=== PATIENT | female | born 1995 | race Caucasian/White ===

== ENCOUNTER 2018-01-27 05:50 | Emergency (ER) | payer OTHER ==
[~2018-01-27] VITALS: Ht 160 cm; Wt 61.2 kg
[2018-01-27 06:01] VITALS: Ht 160 cm; Wt 61.2 kg
[2018-01-27 06:46] LABS: BASOPHIL % 0.2 % (0-2); PLATELET COUNT 238 x10^3mcL (130-400); RED CELL DISTRIBUTION WIDTH 13.9 % (11.5-14.5)
[2018-01-27 06:48] LABS: CALCIUM 8.8 mg/dL (8.5-10.1); CHLORIDE SERUM 103 mmol/L (98-107); CREATININE SERUM 0.5 mg/dL (0.6-1.0); GFR1 > 60 mL/min; GLUCOSE SERUM 90 mg/dL (74-106); POTASSIUM SERUM 3.3 mmol/L (3.5-5.1); SODIUM SERUM 137 mmol/L (136-145)
[2018-01-27 08:00] VITALS: BP 97/57
== END 2018-01-27 08:49 | disposition home or self-care (01) ==
LOC: ED 05:50
PROVIDERS: Emergency Medicine
DX: O20.9 Hemorrhage in early pregnancy, unspecified (principal); Z3A.09 9 weeks gestation of pregnancy
CPT/HCPCS: J7030

== ENCOUNTER 2018-08-29 12:40 | Emergency (ER) | payer OTHER ==
[~2018-08-29] VITALS: Ht 160 cm; Wt 64.4 kg
[2018-08-29 12:53] VITALS: BP 118/62; Ht 160 cm; Wt 64.4 kg
== END 2018-08-29 16:09 | disposition home or self-care (01) ==
LOC: ED 12:40
DX: A60.00 Herpesviral infection of urogenital system, unspecified (principal)

== ENCOUNTER 2019-06-10 18:03 | Emergency (ER) | payer OTHER ==
[~2019-06-10] VITALS: Ht 162.6 cm; Wt 78.0 kg
[2019-06-10 18:10] VITALS: Ht 162.6 cm; Wt 78.0 kg
[2019-06-10 18:51] VITALS: BP 120/67
== END 2019-06-10 18:52 | disposition home or self-care (01) ==
LOC: ED 18:03
DX: O98.513 Other viral diseases complicating pregnancy, third trimester (principal); J45.909 Unspecified asthma, uncomplicated; Z3A.38 38 weeks gestation of pregnancy